=== PATIENT | male | born 1995 | race Caucasian/White ===

== ENCOUNTER 2017-09-05 23:24 | Emergency (ER) | payer OTHER ==
[~2017-09-05] VITALS: Ht 165.1 cm; Wt 83.4 kg
[2017-09-05 23:26] VITALS: BP 128/72
[2017-09-06] MEDS ORDERED: BACLOFEN10 MG PO (00:14)
[2017-09-06] MEDS ORDERED: DECADRON4 M1 PO (00:14)
[2017-09-06] MEDS ORDERED: MOBIC15 MG PO (00:14)
== END 2017-09-06 00:46 | disposition home or self-care (01) ==
LOC: EME 23:24
DX: M54.5 Low back pain (principal)
CPT/HCPCS: 99281; 99284; J1100